=== PATIENT | female | born 1945 | race Caucasian/White ===

== ENCOUNTER 2023-04-19 15:11 | Inpatient (IN) | payer BC ==
[~2023-04-19] VITALS: Ht 162.6 cm; Wt 123.4 kg
[2023-04-19 23:21] VITALS: BP 117/66; PULSE 101; RESP 16; RESP 18; TEMP 98.1; O2SAT 94
[2023-04-19] MEDS ORDERED: HYDROcodone-ACET 5/325MG TAB PO PRN (23:45)
[2023-04-19] MEDS ORDERED: ACETAMINOPHEN 325 MG TAB PO PRN (23:45)
[2023-04-19] MEDS ORDERED: POTASSIUM CHL 20 Meq TABLET PO ONE (23:45)
[2023-04-19] MEDS ORDERED: hydrALAZINE HCL 10 MG TAB PO PRN (23:45)
[2023-04-19] MEDS ORDERED: ONDANSETRON HCL 4 MG/2 ML VIAL IV PRN (23:45)
[2023-04-19 23:51] VITALS: BP 117/66; PULSE 101; RESP 19; TEMP 98.1; O2SAT 94
[2023-04-20] MEDS ORDERED: POTASSIUM CHL 20 Meq TABLET PO ONE (04:08)
[2023-04-20 05:00] VITALS: BP 107/63; PULSE 104; RESP 19; TEMP 98.1; O2SAT 92
[2023-04-20 07:24] LABS: Potassium 3.7 mmol/L (3.5-5.1)
[2023-04-20 07:56] LABS: Albumin 2.6 g/dL (3.4-5.0); BUN/Creatinine Ratio 33.3 (10.0-20.0); Bilirubin, Total 0.4 mg/dL (0.2-1.0)
[2023-04-20 08:00] VITALS: BP 134/42; PULSE 103; PULSE 107; RESP 21; TEMP 98.3; O2SAT 91
[2023-04-20] MEDS: SODIUM CHLORIDE 0.9% 1,000 ML IV SCH ×2 (08:30→17:53)
[2023-04-20] MEDS ORDERED: BUPR150T8 PO (11:46)
[2023-04-20] MEDS ORDERED: BENA-36 PO (11:46)
[2023-04-20 12:00] VITALS: BP 126/56; PULSE 98; RESP 22; TEMP 98; O2SAT 93
[2023-04-20 16:00] VITALS: BP 131/52; PULSE 105; RESP 22; TEMP 98.9; O2SAT 93
[2023-04-20 16:27] LABS: Urine Bacteria FEW /hpf (None Seen); Urine Blood TRACE /uL (Negative); Urine Clarity CLOUDY (Clear); Urine Mucus FEW (None Seen); Urine Protein, UAD 2+ (Negative); Urine Specific Gravity 1.017 (1.001-1.035); Urine WBC 355 /hpf (0 - 5); Urine WBC Clumps PRESENT /hpf (None Seen)
[2023-04-20 16:29] LABS: Urine Color BROWN (Yellow)
[2023-04-20] MEDS ORDERED: CITA-73 PO (17:41)
[2023-04-20] MEDS ORDERED: BUPR-413 PO (17:41)
[2023-04-20] MEDS ORDERED: MULT1TAB95 PO (17:41)
[2023-04-20 20:00] VITALS: PULSE 100; PULSE 103; RESP 18; RESP 21; O2SAT 94
[2023-04-20 22:00] VITALS: BP 130/71; PULSE 100; RESP 14; TEMP 98.3; O2SAT 94
[2023-04-21] MEDS: SODIUM CHLORIDE 0.9% 1,000 ML IV SCH ×2 (00:30→08:30)
[2023-04-21 04:51] VITALS: BP 131/72; PULSE 95; RESP 14; TEMP 98.2; O2SAT 95
[2023-04-21 06:04] LABS: Basophils # (auto) 0 10 ^3/uL (0-0.2); Basophils % (auto) 0.5 % (0.0-2.0); Eosinophils # (auto) 0.3 10 ^3/uL (0-0.8); Eosinophils % (auto) 3.2 % (0.0-7.0); Hematocrit 35.7 % (36.0-46.0); Lymphocytes # (auto) 1.1 10 ^3/uL (0.4-5.4); Mean Corpuscular Hemoglobin 31.4 pg (28.0-32.0); Mean Corpuscular Hgb Conc. 33.5 g/dL (32.0-36.0); Mean Corpuscular Volume 93.7 fL (80.0-100.0); Monocytes % (auto) 10.1 % (0.0-12.0); Neutrophils # (auto) 7.5 10 ^3/uL (1.6-8.6); Neutrophils % (auto) 75.2 % (37.0-80.0); Red Blood Cells 3.81 10^6/uL (4.0-5.20); Red Cell Distribution Width 13.8 % (11.8-14.3); White Blood Cell 9.9 10^3/uL (4.4-10.8)
[2023-04-21 06:11] LABS: Albumin 2.3 g/dL (3.4-5.0); Calcium 8.2 mg/dL (8.5-10.1); Potassium 3.4 mmol/L (3.5-5.1)
[2023-04-21 06:15] LABS: BUN/Creatinine Ratio 33.9 (10.0-20.0); Bilirubin, Total 0.4 mg/dL (0.2-1.0); Total Protein 5.7 g/dL (6.4-8.2)
[2023-04-21 08:00] VITALS: BP 146/73; PULSE 97; RESP 20; TEMP 98.6; O2SAT 93
[2023-04-21 09:00] VITALS: BP 146/73; PULSE 95; RESP 20; TEMP 98.6; O2SAT 93
[2023-04-21] MEDS ORDERED: ENOXAPARIN SOD 40 MG/0.4 ML SYRINGE SC SCH (10:00)
[2023-04-21] MEDS ORDERED: cefTRIAXone 1GM/50ML D5W 50 ML IV SCH (11:30)
[2023-04-21] MEDS ORDERED: CIPR500T4 PO (12:47)
[2023-04-21 12:56] VITALS: BP 117/66; PULSE 91; RESP 20; TEMP 98.8; O2SAT 91
[2023-04-21 13:43] VITALS: BP 146/73; PULSE 95; RESP 20; TEMP 98.6; O2SAT 93
== END 2023-04-21 16:35 | disposition home health service (06) | DRG 558 ==
LOC: TELE 22:45 → TELE-WESTW 22:46
PROVIDERS: ADMIT Internal Medicine; ATTEND Internal Medicine
DX: M62.82 Rhabdomyolysis (principal); N39.0 Urinary tract infection, site not specified; Z68.42 Body mass index [BMI] 45.0-49.9, adult; K21.9 Gastro-esophageal reflux disease without esophagitis; E66.01 Morbid (severe) obesity due to excess calories; I10 Essential (primary) hypertension; G89.29 Other chronic pain; R74.01 Elevation of levels of liver transaminase levels; Z98.84 Bariatric surgery status
CPT/HCPCS: 36415; 80053; 81001; 82550; 85025; 97110; 97163; 97530; G0378; J0696